=== PATIENT | female | born 1950 | race Caucasian/White ===

== ENCOUNTER 2021-07-01 17:11 | Emergency (ER) | payer MEDICARE ==
[2021-07-01] MEDS ORDERED: ELIQUIS5 M1 PO (17:20)
== END 2021-07-01 20:00 | disposition short-term general hospital (02) ==
LOC: ED 17:11
DX: S02.85XA Fracture of orbit, unspecified, initial encounter for closed fracture (principal); Z79.899 Other long term (current) drug therapy; W18.09XA Striking against other object with subsequent fall, initial encounter; Y93.89 Activity, other specified; Y92.89 Other specified places as the place of occurrence of the external cause; Y99.8 Other external cause status

== ENCOUNTER 2022-06-11 18:08 | Emergency (ER) | payer SELFPAY ==
[~2022-06-11] VITALS: Wt 114.3 kg
[~2022-06-11 18:08] MED LIST: ELIQUIS5 M1 PO
== END 2022-06-11 21:44 | disposition home or self-care (01) ==
LOC: ED 18:08
DX: S46.912A Strain of unspecified muscle, fascia and tendon at shoulder and upper arm level, left arm, initial encounter (principal); E11.9 Type 2 diabetes mellitus without complications; Z79.899 Other long term (current) drug therapy; Z90.49 Acquired absence of other specified parts of digestive tract; W18.39XA Other fall on same level, initial encounter; Y93.89 Activity, other specified; Y92.89 Other specified places as the place of occurrence of the external cause; Y99.8 Other external cause status